=== PATIENT | female | born 1990 ===

== ENCOUNTER 2017-01-14 01:39 | Emergency (ER) | payer MEDICAID ==
[2017-01-14 01:40] VITALS: BMI 36.6
[2017-01-14 01:49] VITALS: RESP 16; TEMP 98.6; O2SAT 98
[2017-01-14 01:50] VITALS: BP 119/67
--- NOTE | 2017-01-14 02:06 | ED PDOC ---
Lower Extremity Pain/Injury Time Seen by Provider: 01/14/17 01:52 Chief Complaint (Nursing): Lower Extremity Problem/Injury Chief Complaint (Provider): left ankle pain History Per: Patient History/Exam Limitations: no limitations Onset/Duration Of Symptoms: Mins Current Symptoms Are (Timing): Still Present Additional History Per: Patient Additional Complaint(s): 26 y/o female brought in by EMS for eval of left ankle pain status-post fall. Patient states she was sitting on a banister outside that fell over, causing her to fall to the ground. Patient unsure how she landed, but noted pain to left ankle as soon as she stood up. Denies numbness/weakness left lower extremity. Past Medical History Reviewed: Historical Data, Nursing Documentation, Vital Signs Vital Signs: Last Vital Signs Temp 98.6 F 01/14/17 01:45 Pulse 126 H 01/14/17 01:45 Resp 16 01/14/17 01:45 BP 119/67 01/14/17 01:49 Pulse Ox 98 01/14/17 01:45 - Medical History PMH: Asthma - Surgical History Surgical History: Cholecystectomy, (x2) - Family History Family History: States: Unknown Family Hx - Immunization History Hx Tetanus Toxoid Vaccination: Yes - Home Medications Home Medications: Ambulatory Orders Medication Instructions Recorded Albuterol HFA [Ventolin HFA 90 200 puff IH PRN PRN 09/25/15 mcg/actuation (8 g)] Naproxen 500 mg PO BID PRN #30 tablet 09/25/15 Penicillin VK [Pen-Vee K] 500 mg PO Q6 #40 tab 11/24/15 traMADol [Ultram] 50 mg PO Q8 #10 tab 11/24/15 Nitrofurantoin Macrocrystals 100 mg PO BID #10 cap 05/17/16 [Macrobid] Vit 10/Iron/Folic/Dha 1 each PO DAILY #30 combo..pkg 05/17/16 [Vitafol-Ob+Dha Combo Pack] Pnv No.95/Ferrous Fum/Folic AC 1 each PO DAILY 05/29/16 [ Vitamin Tablet] Docusate Sodium/Ferrous Fumara 1 tab PO TID #90 tab 07/26/16 [Matilda-Sequels 100 mg -150 mg] Ibuprofen [Motrin] 600 mg PO Q6 PRN #30 tab 07/26/16 oxyCODONE/Acetaminophen [Percocet 1 tab PO Q6 PRN #12 tab 07/26/16 5/325 mg Tab] Ibuprofen [Motrin Tab] 1 tab PO Q6 PRN #20 tab 01/14/17 - Allergies Allergies/Adverse Reactions: Allergies Allergy/AdvReac Type Severity Reaction Status Date / Time No Known Allergies Allergy Verified 11/24/15 17:54 Review of Systems ROS Statement: Except As Marked, All Systems Reviewed And Found Negative Musculoskeletal: Positive for: Foot Pain (left ankle) Physical Exam - Reviewed Nursing Documentation Reviewed: Yes Vital Signs Reviewed: Yes - Physical Exam Appears: Positive for: Well, Non-toxic, No Acute Distress Pulses-Dorsalis Pedis (L): 2+ Pulses-Dorsalis Pedis (R): 2+ Pulses-Post. Tibialis (L): 2+ Pulses-Post. Tibialis (R): 2+ Extremity: Positive for: Normal ROM, Tenderness (diffuse left ankle with mild swelling; no obvious deformity), Capillary Refill, Other (neg tompson test b/l) Neurologic/Psych: Positive for: Alert, Oriented. Negative for: Motor/Sensory Deficits - ECG O2 Sat by Pulse Oximetry: 98 - Other Rad left ankle xray X-Ray: Viewed By Me X-Ray Interpretation: no acute findings - Progress ED Course And Treament: xray,ibuprofen Patient educated on findings. Left ankle placed in air cast. Crutches given with demonstration on use. Follow up podiatry. Return to ED for worsening/concerning symptoms. Disposition - Clinical Impression Clinical Impression: Left ankle injury - Patient ED Disposition Is Patient to be Admitted: No Counseled Patient/Family Regarding: Studies Performed, Diagnosis, Need For Followup, Rx Given - Disposition Referrals: Podiatry Clinic [Outside] Disposition: Routine/Home Disposition Time: 03:15 Condition: IMPROVED Prescriptions: Ibuprofen [Motrin Tab] 1 tab PO Q6 PRN #20 tab PRN Reason: Pain, Moderate (4-7) Instructions: Ankle Sprain (ED), RICE Therapy (ED)
[2017-01-14 04:08] VITALS: PULSE 99
--- NOTE | 2017-01-14 11:15 | RAD ---
PROCEDURE: Left ankle dated 01/14/2017 HISTORY: fall, left ankle pain COMPARISON: None FINDINGS: BONES: Normal. No fracture. JOINTS: Normal. No osteoarthritis. Ankle mortise maintained. Talar dome intact SOFT TISSUES: There appears to be mild bilateral soft tissue swelling OTHER FINDINGS: None. IMPRESSION: No evidence of acute displaced fracture nor dislocation. Suspect mild bilateral soft tissue swelling
== END 2017-01-14 03:52 | disposition home or self-care (01) ==
LOC: H.ER 01:39
DX: S99.912A Unspecified injury of left ankle, initial encounter (principal); W18.39XA Other fall on same level, initial encounter; Y93.89 Activity, other specified; Y92.89 Other specified places as the place of occurrence of the external cause